=== PATIENT | female | born 1940 | race Caucasian/White ===

== ENCOUNTER 2018-12-31 10:40 | Emergency (ER) | payer MEDICARE ==
[~2018-12-31] VITALS: Ht 154.9 cm; Wt 50.5 kg
[~2018-12-31 10:40] MED LIST: ASPI-1265 PO; CIPR-260 PO; GLIM1TAB3 PO; LANTUS SQ; LISI-222 PO; METF-950 PO; PANT40TA39 PO; PRAV20TA60 PO
[2018-12-31 12:03] LABS: BASOPHILS % (AUTO) 0.8 % (0-1); EOSINOPHILS # (AUTO) 0.1 X10'3 (0-0.9); EOSINOPHILS % (AUTO) 1.5 % (0-6); HEMATOCRIT 31.5 % (35.0-45.0); HEMOGLOBIN 10.7 g/dl (12.0-16.0); LYMPHOCYTES # (AUTO) 1.1 X10'3 (1.1-4.8); LYMPHOCYTES % (AUTO) 26.7 % (21-51); MEAN CORPUSCULAR HEMOGLOBIN 31.4 PG (27.0-31.0); MEAN CORPUSCULAR HGB CONC 34.1 g/dL (33.0-36.5); MEAN CORPUSCULAR VOLUME 92.1 FL (78-98); MEAN PLATELET VOLUME 9.4 FL (7.4-10.4); MONOCYTES # (AUTO) 0.2 X10'3 (0-0.9); MONOCYTES % (AUTO) 4.8 % (2-12); NEUTROPHILS # (AUTO) 2.8 X10'3 (1.8-7.7); NEUTROPHILS % (AUTO) 66.2 % (42-75); PLATELET COUNT 203 X10'3 (140-440); RED BLOOD COUNT 3.42 X10'6 (4.20-5.60); RED CELL DISTRIBUTION WIDTH 13.6 % (11.5-14.5); WHITE BLOOD COUNT 4.3 X10'3 (4.5-11.0)
[2018-12-31 12:15] LABS: ALANINE AMINOTRANSFERASE 22 U/L (12-78); ALBUMIN 3.7 G/DL (3.4-5.0); ALBUMIN/GLOBULIN RATIO 1.2 (1.1-1.5); ALKALINE PHOSPHATASE 48 IU/L (46-116); ANION GAP 7 (8-16); ASPARTATE AMINO TRANSFERASE 17 U/L (10-37); BILIRUBIN,TOTAL 0.2 MG/DL (0.1-1.0); BLOOD UREA NITROGEN 20 MG/DL (7-18); BUN/CREATININE RATIO 19.4 (6.6-38.0); CALCIUM 9.4 MG/DL (8.5-10.1); CHLORIDE 109 MMOL/L (99-107); CREATININE 1.03 MG/DL (0.40-0.90); GLUCOSE 99 MG/DL (70-104); MAGNESIUM 1.8 MG/DL (1.5-2.4); POTASSIUM 4.2 MMOL/L (3.5-5.1); SODIUM 143 MMOL/L (135-145); TOTAL CARBON DIOXIDE 27.5 MMOL/L (24-32); TOTAL PROTEIN 6.8 G/DL (6.4-8.2); eGFR 52 ML/MIN
--- NOTE | 2018-12-31 12:50 | NUR ---
ASSUMED CARE OF PT FROM APOORVA PFEIFFER, PT IS RESTING QUIETLY ON GURNEY, RESP EVEN AND UNLABORED, FAMILY AT BEDSIDE, WAITING FOR LAB RESULTS
[2018-12-31 12:51] LABS: CLARITY,URINE CLOUDY (Clear); COLOR,URINE YELLOW (Yellow); GLUCOSE, URINE NEGATIVE (Neg); KETONES,URINE NEGATIVE (Neg); LEUKOCYTE ESTERASE ,URINE SMALL (Neg); NITRITES, URINE NEGATIVE (Neg); OCCULT BLOOD,URINE NEGATIVE (Neg); PROTEIN,URINE NEGATIVE (Neg); UA COLLECTION TYPE STRAIGHT CATH; UROBILINOGEN,URINE 0.2 E.U/dL (0.2-1.0)
[2018-12-31 13:01] LABS: BACTERIA,URINE FEW /HPF (Neg); RBC,URINE 0-2 /HPF (0-2); SQUAMOUS EPITHELIAL CELL,UR MANY /LPF (FEW); WBC CLUMPS,URINE MODERATE /HPF (NEGATIVE); WBC,URINE 20-30 /HPF (0-4)
[2018-12-31] MEDS ORDERED: CEPH500C5 PO (13:13)
[2018-12-31 13:24] VITALS: BP 142/66
== END 2018-12-31 13:22 | disposition home or self-care (01) ==
LOC: ER 10:41
DX: N39.0 Urinary tract infection, site not specified (principal); M54.2 Cervicalgia; R06.02 Shortness of breath; I25.10 Atherosclerotic heart disease of native coronary artery without angina pectoris; E78.00 Pure hypercholesterolemia, unspecified; I10 Essential (primary) hypertension; E11.9 Type 2 diabetes mellitus without complications; Z90.49 Acquired absence of other specified parts of digestive tract; Z90.710 Acquired absence of both cervix and uterus; Z60.2 Problems related to living alone; Z79.82 Long term (current) use of aspirin; Z79.4 Long term (current) use of insulin; Z79.84 Long term (current) use of oral hypoglycemic drugs; Z79.899 Other long term (current) drug therapy
CPT/HCPCS: 36415; 71045; 80053; 81001; 83735; 83880; 84484; 85025; 87088; 93005; 99284; P9612

== ENCOUNTER 2019-01-06 09:55 | Day surgery (SDC) | payer MEDICARE ==
[2019-01-05 08:57] LABS: EOSINOPHILS # (AUTO) 0.1 X10'3 (0-0.9); EOSINOPHILS % (AUTO) 1.3 % (0-6); HEMATOCRIT 33.4 % (35.0-45.0); HEMOGLOBIN 11.3 g/dl (12.0-16.0); LYMPHOCYTES # (AUTO) 1.2 X10'3 (1.1-4.8); LYMPHOCYTES % (AUTO) 29.7 % (21-51); MEAN CORPUSCULAR HEMOGLOBIN 31.2 PG (27.0-31.0); MEAN CORPUSCULAR HGB CONC 33.8 g/dL (33.0-36.5); MEAN CORPUSCULAR VOLUME 92.2 FL (78-98); MEAN PLATELET VOLUME 9.4 FL (7.4-10.4); MONOCYTES # (AUTO) 0.2 X10'3 (0-0.9); MONOCYTES % (AUTO) 5.2 % (2-12); NEUTROPHILS # (AUTO) 2.5 X10'3 (1.8-7.7); NEUTROPHILS % (AUTO) 62.8 % (42-75); PLATELET COUNT 224 X10'3 (140-440); RED BLOOD COUNT 3.62 X10'6 (4.20-5.60); RED CELL DISTRIBUTION WIDTH 14.1 % (11.5-14.5); WHITE BLOOD COUNT 4.1 X10'3 (4.5-11.0)
[2019-01-05 09:00] LABS: ANION GAP 9 (8-16); BLOOD UREA NITROGEN 20 MG/DL (7-18); CALCIUM 9.3 MG/DL (8.5-10.1); CHLORIDE 106 MMOL/L (99-107); GLUCOSE 107 MG/DL (70-104); POTASSIUM 4.1 MMOL/L (3.5-5.1); SODIUM 142 MMOL/L (135-145); TOTAL CARBON DIOXIDE 27.3 MMOL/L (24-32); eGFR 54 ML/MIN
[2019-01-05 09:19] LABS: PARTIAL THROMBOPLASTIN TIME 28 SECONDS (22-32)
[2019-01-06] VITALS (11 sets, daily range): BP systolic 121–192; BP diastolic 49–91
[~2019-01-06] VITALS: Ht 154.9 cm; Wt 50.0 kg
[~2019-01-06 09:55] MED LIST changes: +CEPH500C5 PO
[2019-01-06] MEDS ORDERED: LIDOcaine/PRILOcaine 5gm cream TP ONE (10:10)
[2019-01-06] MEDS ORDERED: diphenhydrAMINE 25mg capsule PO PRN (10:20)
[2019-01-06] MEDS ORDERED: normal saline 1,000 ML IV SCH (10:20)
[2019-01-06] MEDS ORDERED: LORazepam 0.5 MG tablet PO PRN (10:20)
[2019-01-06] MEDS ORDERED: CEPH-572 PO (11:53)
[2019-01-06] MEDS ORDERED: ALPR0.5T8 PO (11:53)
[2019-01-06] MEDS ORDERED: QUET25TA PO (11:53)
[2019-01-06] MEDS ORDERED: ATOR10TA87 PO (11:53)
[2019-01-06] MEDS ORDERED: SERT25TA5 PO (11:53)
[2019-01-06] MEDS ORDERED: nitroGLYCERIN-Tridil 50MG/D5W 250 ML IV ONE (12:44)
[2019-01-06] MEDS ORDERED: fentaNYL/PF 50MCG/1 ML 2ML syringe ONE (12:44)
[2019-01-06] MEDS ORDERED: LIDOcaine 1% (10mg/ml)w/preservative injection 20ml MDV ONE (12:44)
[2019-01-06] MEDS ORDERED: midazolam 2 mg/2 ml injection ONE (12:44)
[2019-01-06] MEDS ORDERED: iohexol 350 MG/ML 50ML vial IV ONE (12:45)
[2019-01-06] MEDS ORDERED: heparin 1,000unit/ml 10ml vial 10 ML ONE (12:45)
[2019-01-06] MEDS ORDERED: iohexol 350MG/ML 100ml bottle IV ONE ×3 (12:45→14:18)
[2019-01-06] MEDS ORDERED: verapamil 2.5 mg/ml inj IV ONE (13:09)
[2019-01-06] MEDS ORDERED: heparin 25,000 UNIT/250ml bag 250 ML IV ONE (14:07)
[2019-01-06] MEDS ORDERED: clopidogrel 300mg tablet ONE (14:29)
[2019-01-06] MEDS ORDERED: aspirin 81mg tab.chew PO SCH (15:30)
[2019-01-06] MEDS ORDERED: normal saline 1000ml 1,000 ML IV SCH (15:35)
[2019-01-07] MEDS ORDERED: clopidogrel 75mg tablet PO SCH (08:00)
== END 2019-01-06 20:05 | disposition home or self-care (01) ==
LOC: SSTAY O 09:55
PROVIDERS: ATTEND Internal Medicine Cardiovascular Disease
DX: I25.10 Atherosclerotic heart disease of native coronary artery without angina pectoris (principal); I10 Essential (primary) hypertension; E78.5 Hyperlipidemia, unspecified; E11.9 Type 2 diabetes mellitus without complications; F17.210 Nicotine dependence, cigarettes, uncomplicated; Z79.4 Long term (current) use of insulin; Z79.899 Other long term (current) drug therapy; Z85.51 Personal history of malignant neoplasm of bladder; Z90.710 Acquired absence of both cervix and uterus; Z98.890 Other specified postprocedural states; Z82.49 Family history of ischemic heart disease and other diseases of the circulatory system; Z82.3 Family history of stroke
CPT/HCPCS: 36415; 80048; 82948; 85025; 85347; 85610; 85730; 93005; 93458; 99152; 99153; C1725; C1769; C1874; C1894; C9600; J1644; J2001; J2250; J3010; J7030; J7040; Q0163; Q9967; A4620; J3490

== ENCOUNTER 2019-04-16 14:00 | Inpatient (IN) | payer MEDICARE ==
[2019-04-16] VITALS (10 sets, daily range): BP systolic 112–162; BP diastolic 43–69
[~2019-04-16] VITALS: Ht 154.9 cm; Wt 52.0 kg
[~2019-04-16 14:00] MED LIST changes: +ALPR0.5T8 PO; +ATOR10TA87 PO; +CEPH-572 PO; -CEPH500C5 PO; -CIPR-260 PO; -GLIM1TAB3 PO; -PANT40TA39 PO; -PRAV20TA60 PO; +QUET25TA PO; +SERT25TA5 PO
--- NOTE | 2019-04-16 15:16 | NUR ---
PT BEGAN MACROBID YESTERDAY FOR A UTI
[2019-04-16 15:24] LABS: BASOPHILS # (AUTO) 0.1 X10'3 (0-0.2); LYMPHOCYTES # (AUTO) 0.8 X10'3 (1.1-4.8); LYMPHOCYTES % (AUTO) 15.2 % (21-51); MEAN CORPUSCULAR HEMOGLOBIN 20.7 PG (27.0-31.0); MEAN CORPUSCULAR HGB CONC 29.9 g/dL (33.0-36.5); MONOCYTES # (AUTO) 0.2 X10'3 (0-0.9); MONOCYTES % (AUTO) 4.4 % (2-12); NEUTROPHILS % (AUTO) 78.4 % (42-75); PLATELET COUNT 198 X10'3 (140-440); RED BLOOD COUNT 2.42 X10'6 (4.20-5.60); RED CELL DISTRIBUTION WIDTH 19.7 % (11.5-14.5); WHITE BLOOD COUNT 5.1 X10'3 (4.5-11.0)
[2019-04-16 15:28] LABS: HEMATOCRIT 16.7 % (35.0-45.0)
[2019-04-16 15:44] LABS: ALANINE AMINOTRANSFERASE 30 U/L (12-78); ALBUMIN 3.5 G/DL (3.4-5.0); ALBUMIN/GLOBULIN RATIO 1.1 (1.1-1.5); ALKALINE PHOSPHATASE 64 IU/L (46-116); ANION GAP 9 (8-16); ASPARTATE AMINO TRANSFERASE 24 U/L (10-37); BILIRUBIN,TOTAL 0.2 MG/DL (0.1-1.0); BLOOD UREA NITROGEN 24 MG/DL (7-18); CALCIUM 8.9 MG/DL (8.5-10.1); CHLORIDE 106 MMOL/L (99-107); CREATININE 0.96 MG/DL (0.40-0.90); GLUCOSE 162 MG/DL (70-104); POTASSIUM 4.2 MMOL/L (3.5-5.1); SODIUM 139 MMOL/L (135-145); TOTAL CARBON DIOXIDE 24.3 MMOL/L (24-32); TOTAL PROTEIN 6.6 G/DL (6.4-8.2); eGFR 56 ML/MIN
[2019-04-16] MEDS ORDERED: normal saline 1000ml 1,000 ML IV ONE (15:50)
[2019-04-16] MEDS ORDERED: pantoprazole 40 MG vial IV ONE (15:50)
[2019-04-16] MEDS ORDERED: QUET50TA22 PO (16:04)
[2019-04-16] MEDS ORDERED: LISI40TA4 PO (16:04)
[2019-04-16] MEDS ORDERED: ALPR1TAB7 PO (16:04)
[2019-04-16] MEDS ORDERED: PRAM0.258 PO (16:08)
[2019-04-16] MEDS ORDERED: MULT-955 PO (16:08)
[2019-04-16] MEDS ORDERED: CLOP75TA35 PO (16:09)
[2019-04-16] MEDS ORDERED: ondansetron/PF 4mg/2ml inj IV PRN (16:10)
[2019-04-16] MEDS ORDERED: acetaminophen 325mg tablet PO PRN (16:10)
[2019-04-16] MEDS ORDERED: mag hydrox/Alum hydrox/simeth 30ml oral suspension PO PRN (16:10)
[2019-04-16] MEDS ORDERED: magnesium hydroxide 30ml (MOM) UD suspension PO PRN (16:10)
[2019-04-16] MEDS ORDERED: PEG 3350/Na sulf,bicarb,Cl/KCl oral sol 4 liter bottle PO ONE (16:20)
[2019-04-16 16:23] LABS: ANISOCYTOSIS 2+; ELLIPTOCYTES FEW; HYPOCHROMASIA 3+; MICROCYTOSIS 2+; PLATELET ESTIMATE NORMAL; POLYCHROMASIA 1+; TEAR DROP CELLS 1+
--- NOTE | 2019-04-16 18:00 | NUR ---
Patient in room PCU 3016. I have received report from Nilsa PFEIFFER [facility] and had the opportunity to ask questions and assume patient care.
[2019-04-16] MEDS: normal saline 1000ml 1,000 ML IV SCH (18:10)
--- NOTE | 2019-04-16 18:39 | NUR ---
PT PULLED OUT HER IV, IV RESTARTED. PT CONFUSED, TRIES TO GET UP WITHOUT HELP. NURSING AUTO TECHNICIAN MECHANIC WAS NOTIFIED THAT PT WOULD NEED A SITTER
--- NOTE | 2019-04-16 19:45 | NUR ---
blood ended at 1944, first unit started in ER
[2019-04-16] MEDS: insulin glargine (Lantus) pen - multi-dose SQ SCH (21:00)
[2019-04-16] MEDS: ALPRAZolam 0.5mg tablet PO SCH (21:14)
[2019-04-16] MEDS: pramipexole 0.25mg tablet PO SCH (21:17)
[2019-04-16 21:39] LABS: MEAN CORPUSCULAR HEMOGLOBIN 22.6 PG (27.0-31.0); MEAN PLATELET VOLUME 8.5 FL (7.4-10.4); PLATELET COUNT 157 X10'3 (140-440); RED BLOOD COUNT 2.54 X10'6 (4.20-5.60); WHITE BLOOD COUNT 4.9 X10'3 (4.5-11.0)
[2019-04-16 21:41] LABS: HEMATOCRIT 18.5 % (35.0-45.0); HEMOGLOBIN 5.7 g/dl (12.0-16.0)
--- NOTE | 2019-04-16 22:46 | NUR ---
TRANSFUSION VS ABNORMAL Patients vital signs one hour post transfusion were 111/44 BP, HR 59, respirations 14, temp 96.5 axillary-discussed change of vital sign trend with discharge planner Aaron, discussed patient getting xanax and mirapex one hour ago, no other signs or symptoms of transfusion reaction. Per conversation with Change RN, determined patient is not having transfusion reaction, but affected by medication administration, and do not need to contact MD at this time
[2019-04-17] VITALS (31 sets, daily range): BP systolic 113–190; BP diastolic 36–83
[2019-04-17] MEDS ORDERED: furosemide 20 MG/2 ML vial IV PRN (03:15)
[2019-04-17] MEDS ORDERED: hydrALAZINE 20mg/ml inj. IV PRN (03:15)
[2019-04-17] MEDS ORDERED: furosemide 20 MG/2 ML vial IV ONE (03:15)
--- NOTE | 2019-04-17 06:21 | NUR ---
Patient in room PCU 3016. I have received report from KENTRELL Kamara and had the opportunity to ask questions and assume patient care.
[2019-04-17 06:27] LABS: ALBUMIN 3.9 G/DL (3.4-5.0); ANION GAP 14 (8-16); BLOOD UREA NITROGEN 18 MG/DL (7-18); BUN/CREATININE RATIO 19.6 (6.6-38.0); CHLORIDE 107 MMOL/L (99-107); CREATININE 0.92 MG/DL (0.40-0.90); GLUCOSE 122 MG/DL (70-104); POTASSIUM 3.8 MMOL/L (3.5-5.1); SODIUM 142 MMOL/L (135-145); eGFR 59 ML/MIN
--- NOTE | 2019-04-17 06:36 | NUR ---
Problems reprioritized. Patient report given, questions answered & plan of care reviewed with Efrain PFEIFFER.
--- NOTE | 2019-04-17 06:42 | NUR ---
PAGER ID: [phone] MESSAGE: [id number] Sara Medeiros: CO2 41.3 KENTRELL Zuniga [id number] Addendum: 04/17/19 at 0642 by Efrain العلي RN wrong patient
[2019-04-17 06:54] LABS: BASOPHILS # (AUTO) 0.1 X10'3 (0-0.2); EOSINOPHILS # (AUTO) 0.1 X10'3 (0-0.9); EOSINOPHILS % (AUTO) 1.4 % (0-6); HEMATOCRIT 33.6 % (35.0-45.0); HEMOGLOBIN 10.7 g/dl (12.0-16.0); LYMPHOCYTES # (AUTO) 0.9 X10'3 (1.1-4.8); LYMPHOCYTES % (AUTO) 16.6 % (21-51); MEAN CORPUSCULAR HEMOGLOBIN 24.8 PG (27.0-31.0); MEAN CORPUSCULAR VOLUME 77.4 FL (78-98); MEAN PLATELET VOLUME 9.3 FL (7.4-10.4); MONOCYTES # (AUTO) 0.3 X10'3 (0-0.9); MONOCYTES % (AUTO) 5.2 % (2-12); NEUTROPHILS # (AUTO) 4.3 X10'3 (1.8-7.7); NEUTROPHILS % (AUTO) 75.8 % (42-75); PLATELET COUNT 184 X10'3 (140-440); RED BLOOD COUNT 4.34 X10'6 (4.20-5.60); RED CELL DISTRIBUTION WIDTH 20.5 % (11.5-14.5); WHITE BLOOD COUNT 5.6 X10'3 (4.5-11.0)
[2019-04-17] MEDS: normal saline 1000ml 1,000 ML IV SCH (06:57)
[2019-04-17 07:33] LABS: ANISOCYTOSIS 3+; LARGE PLATELETS FEW; MICROCYTOSIS 1+; PLATELET ESTIMATE NORMAL; POIKILOCYTOSIS FEW; POLYCHROMASIA FEW
[2019-04-17] MEDS ORDERED: LIDOcaine Viscous 15ml cup ONE (08:35)
[2019-04-17] MEDS ORDERED: fentaNYL/PF 50MCG/1 ML 2ML syringe ONE (08:35)
[2019-04-17] MEDS ORDERED: MIDAZolam 5mg/5ml vial ONE (08:35)
--- NOTE | 2019-04-17 09:27 | NUR ---
PAGER ID: [phone] MESSAGE: [id number] GENEVIEVE HAD A 3.7 SEC PAUSE. VS MANDEEP OTHER THAN THAT LEOPOLDO MONET
--- NOTE | 2019-04-17 09:33 | NUR ---
PAGER ID: [phone] MESSAGE: Rowdy [id number] GENEVIEVE IN GI LAB FOR COLONOSCOPY . THEY ARE AWARE OF PAUSE
[2019-04-17] MEDS: sertraline 25mg tablet PO SCH (10:59)
[2019-04-17] MEDS: QUEtiapine 25mg tablet PO SCH (10:59)
[2019-04-17] MEDS: clopidogrel 75mg tablet PO SCH (10:59)
[2019-04-17] MEDS: multivitamins, therapeutics tablet PO SCH (10:59)
[2019-04-17] MEDS: atorvastatin 10mg tablet PO SCH (10:59)
[2019-04-17] MEDS: lisinopril 20mg tablet PO SCH (10:59)
[2019-04-17 11:09] LABS: HEMATOCRIT 28.6 % (35.0-45.0); HEMOGLOBIN 9.5 g/dl (12.0-16.0); MEAN CORPUSCULAR HEMOGLOBIN 25.1 PG (27.0-31.0); MEAN CORPUSCULAR HGB CONC 33.1 g/dL (33.0-36.5); MEAN CORPUSCULAR VOLUME 75.9 FL (78-98); MEAN PLATELET VOLUME 8.8 FL (7.4-10.4); PLATELET COUNT 164 X10'3 (140-440); RED BLOOD COUNT 3.77 X10'6 (4.20-5.60); WHITE BLOOD COUNT 4.9 X10'3 (4.5-11.0)
[2019-04-17] MEDS: pramipexole 0.25mg tablet PO SCH ×2 (11:53→20:27)
[2019-04-17 17:08] LABS: HEMATOCRIT 27.6 % (35.0-45.0); HEMOGLOBIN 9.1 g/dl (12.0-16.0); MEAN CORPUSCULAR HEMOGLOBIN 24.7 PG (27.0-31.0); MEAN CORPUSCULAR HGB CONC 32.9 g/dL (33.0-36.5); MEAN CORPUSCULAR VOLUME 75.1 FL (78-98); MEAN PLATELET VOLUME 8.7 FL (7.4-10.4); PLATELET COUNT 170 X10'3 (140-440); RED BLOOD COUNT 3.68 X10'6 (4.20-5.60); RED CELL DISTRIBUTION WIDTH 21.3 % (11.5-14.5)
--- NOTE | 2019-04-17 18:18 | NUR ---
Problems reprioritized. Patient report given, questions answered & plan of care reviewed with KENTRELL Castro.
--- NOTE | 2019-04-17 18:26 | NUR ---
Patient in room PCU 3016. I have received report from Efrain PFEIFFER and had the opportunity to ask questions and assume patient care.
[2019-04-17] MEDS: ALPRAZolam 0.5mg tablet PO SCH (20:27)
[2019-04-17] MEDS: insulin glargine (Lantus) pen - multi-dose SQ SCH (21:35)
[2019-04-17 22:12] LABS: HEMATOCRIT 25.7 % (35.0-45.0); HEMOGLOBIN 8.3 g/dl (12.0-16.0); MEAN CORPUSCULAR HEMOGLOBIN 24.7 PG (27.0-31.0); MEAN CORPUSCULAR HGB CONC 32.4 g/dL (33.0-36.5); MEAN PLATELET VOLUME 8.5 FL (7.4-10.4); PLATELET COUNT 147 X10'3 (140-440); RED BLOOD COUNT 3.38 X10'6 (4.20-5.60); RED CELL DISTRIBUTION WIDTH 21.5 % (11.5-14.5); WHITE BLOOD COUNT 3.5 X10'3 (4.5-11.0)
[2019-04-17] MEDS ORDERED: dextrose ORAL solution 15 GM/59 ML bottle PO PRN ×2 (23:25)
[2019-04-17] MEDS ORDERED: dextrose 50%-water 50ml dispensing syringe IV PRN ×2 (23:25)
[2019-04-17] MEDS ORDERED: MESSAGE TO PHARMACY PO ONE (23:25)
[2019-04-17] MEDS ORDERED: insulin Lispro (HumaLOG) vial - multi-dose SQ SCH (23:25)
[2019-04-17] MEDS ORDERED: glucagon, human recombinant 1mg kit SUBCUT PRN (23:25)
[2019-04-18 02:00] VITALS: BP 135/57
[2019-04-18 04:57] LABS: BASOPHILS % (AUTO) 1.1 % (0-1); EOSINOPHILS # (AUTO) 0.1 X10'3 (0-0.9); EOSINOPHILS % (AUTO) 3.1 % (0-6); HEMATOCRIT 28.7 % (35.0-45.0); HEMOGLOBIN 9.2 g/dl (12.0-16.0); LYMPHOCYTES # (AUTO) 0.8 X10'3 (1.1-4.8); LYMPHOCYTES % (AUTO) 21.6 % (21-51); MEAN CORPUSCULAR HEMOGLOBIN 24.5 PG (27.0-31.0); MEAN CORPUSCULAR VOLUME 76.6 FL (78-98); MEAN PLATELET VOLUME 8.8 FL (7.4-10.4); MONOCYTES # (AUTO) 0.2 X10'3 (0-0.9); MONOCYTES % (AUTO) 6.3 % (2-12); NEUTROPHILS # (AUTO) 2.4 X10'3 (1.8-7.7); NEUTROPHILS % (AUTO) 67.9 % (42-75); PLATELET COUNT 163 X10'3 (140-440); RED BLOOD COUNT 3.74 X10'6 (4.20-5.60); RED CELL DISTRIBUTION WIDTH 21.6 % (11.5-14.5); WHITE BLOOD COUNT 3.5 X10'3 (4.5-11.0)
[2019-04-18 05:04] LABS: ALBUMIN 3.2 G/DL (3.4-5.0); ANION GAP 8 (8-16); BLOOD UREA NITROGEN 15 MG/DL (7-18); BUN/CREATININE RATIO 17.4 (6.6-38.0); CALCIUM 8.9 MG/DL (8.5-10.1); CHLORIDE 107 MMOL/L (99-107); CREATININE 0.86 MG/DL (0.40-0.90); GLUCOSE 89 MG/DL (70-104); POTASSIUM 3.1 MMOL/L (3.5-5.1); SODIUM 141 MMOL/L (135-145); TOTAL CARBON DIOXIDE 25.7 MMOL/L (24-32); eGFR 64 ML/MIN
[2019-04-18 06:00] VITALS: BP 106/55
--- NOTE | 2019-04-18 06:12 | NUR ---
Problems reprioritized. Patient report given, questions answered & plan of care reviewed with Efrain PFEIFFER.
--- NOTE | 2019-04-18 06:17 | NUR ---
Patient in room PCU 3016. I have received report from KENTRELL Castro and had the opportunity to ask questions and assume patient care.
[2019-04-18 07:06] LABS: ANISOCYTOSIS 3+; MICROCYTOSIS 1+; PLATELET ESTIMATE NORMAL; POIKILOCYTOSIS FEW; POLYCHROMASIA 1+
[2019-04-18 07:07] LABS: HYPOCHROMASIA 1+
--- NOTE | 2019-04-18 07:53 | NUR ---
PAGER ID: [phone] MESSAGE: [id number] Sushila Trae blood sugar 47 dextrose given per protocol. KENTRELL Zuniga Ext [id number]
[2019-04-18] MEDS: pramipexole 0.25mg tablet PO SCH (07:59)
[2019-04-18] MEDS: multivitamins, therapeutics tablet PO SCH (07:59)
[2019-04-18] MEDS: sertraline 25mg tablet PO SCH (07:59)
[2019-04-18] MEDS: atorvastatin 10mg tablet PO SCH (07:59)
[2019-04-18] MEDS: QUEtiapine 25mg tablet PO SCH (07:59)
[2019-04-18] MEDS: clopidogrel 75mg tablet PO SCH (07:59)
[2019-04-18] MEDS: lisinopril 20mg tablet PO SCH (08:00)
--- NOTE | 2019-04-18 08:58 | NUR ---
PAGER ID: [phone] MESSAGE: [id number] Sushila Larkin may I put in K replacement orders? KENTRELL Zuniga Ext [id number]
[2019-04-18] MEDS ORDERED: potassium CL 10mEq/100ml bag 100 ML IV PRN (09:00)
[2019-04-18] MEDS ORDERED: potassium Cl 20 mEq SR tablet PO PRN ×2 (09:00)
[2019-04-18] MEDS ORDERED: magnesium 4gm in 100ml NS 100 ML IV PRN (09:00)
[2019-04-18] MEDS ORDERED: magnesium Cl slow-release 64mg tablet PO PRN (09:00)
[2019-04-18] MEDS ORDERED: magnesium 2GM in 50ml NS 50 ML IV PRN (09:00)
--- NOTE | 2019-04-18 10:14 | NUR ---
PAGER ID: [phone] MESSAGE: [phone] [id number] Sushila Larkin can we get a sitter while we are waiting for her to leave. I am mostly worried of her transfer from sitting to standing (just to be safe). She is also prone to wandering around. KENTRELL Zuniga Ext [id number]
[2019-04-18 11:00] VITALS: BP 153/62
[2019-04-18 11:10] LABS: HEMATOCRIT 29.3 % (35.0-45.0); HEMOGLOBIN 9.6 g/dl (12.0-16.0); MEAN CORPUSCULAR HEMOGLOBIN 24.9 PG (27.0-31.0); MEAN CORPUSCULAR HGB CONC 32.7 g/dL (33.0-36.5); MEAN CORPUSCULAR VOLUME 76.2 FL (78-98); MEAN PLATELET VOLUME 8.8 FL (7.4-10.4); PLATELET COUNT 173 X10'3 (140-440); RED BLOOD COUNT 3.84 X10'6 (4.20-5.60); RED CELL DISTRIBUTION WIDTH 21.7 % (11.5-14.5); WHITE BLOOD COUNT 4.9 X10'3 (4.5-11.0)
--- NOTE | 2019-04-18 12:30 | NUR ---
DM Consult: A1C 7.3. Pt hx dementia and not appropriate for DM ed at this time. Addendum: 04/18/19 at [address] Amended: Links added.
--- NOTE | 2019-04-18 13:55 | NUR ---
Discharged. PIVs taken out and tele returned. Family educated on GIB and follow-up appointment and stopping aspirin. Stable for DC per MD. Daughter signed all papers.
[2019-04-18] MEDS ORDERED: insulin glargine (Lantus) pen - multi-dose SQ SCH (21:00)
[2019-04-25 11:02] LABS: OCCULT BLOOD STOOL POSITIVE (Neg)
== END 2019-04-18 13:35 | disposition home health service (06) | DRG 378 ==
LOC: ER 14:01 → ED HOLD 16:06 → PCU 3S 19:07
PROVIDERS: ADMIT Family Medicine; ATTEND Hospitalist
PROC: 30233N1 Transfusion of Nonautologous Red Blood Cells into Peripheral Vein, Percutaneous Approach (ICD-10-PCS; 2019-04-16)
PROC: 0DB68ZX Excision of Stomach, Via Natural or Artificial Opening Endoscopic, Diagnostic (ICD-10-PCS; principal; 2019-04-17)
PROC: 0DJD8ZZ Inspection of Lower Intestinal Tract, Via Natural or Artificial Opening Endoscopic (ICD-10-PCS; 2019-04-17)
PROC: 30233N1 Transfusion of Nonautologous Red Blood Cells into Peripheral Vein, Percutaneous Approach (ICD-10-PCS; 2019-04-17)
DX: K92.2 Gastrointestinal hemorrhage, unspecified (principal); D62 Acute posthemorrhagic anemia; E11.9 Type 2 diabetes mellitus without complications; E78.00 Pure hypercholesterolemia, unspecified; E78.5 Hyperlipidemia, unspecified; F03.90 Unspecified dementia, unspecified severity, without behavioral disturbance, psychotic disturbance, mood disturbance, and anxiety; K21.9 Gastro-esophageal reflux disease without esophagitis; F41.9 Anxiety disorder, unspecified; I10 Essential (primary) hypertension; I25.10 Atherosclerotic heart disease of native coronary artery without angina pectoris; Z90.49 Acquired absence of other specified parts of digestive tract; Z90.710 Acquired absence of both cervix and uterus; Z95.5 Presence of coronary angioplasty implant and graft
CPT/HCPCS: 36415; 36430; 43239; 45378; 71045; 80048; 80053; 82272; 82948; 83036; 84484; 85025; 85027; 86885; 86900; 86901; 86920; 87081; 93005; 96374; 99152; 99153; 99285; A4620; C9113; G0378; J1815; J1940; J2250; J3010; J7030; J7040; P9016

== ENCOUNTER 2019-05-17 08:35 | Emergency (ER) | payer MEDICARE ==
[~2019-05-17] VITALS: Ht 160 cm; Wt 54.0 kg
[~2019-05-17 08:35] MED LIST changes: -ALPR0.5T8 PO; +ALPR1TAB7 PO; -ASPI-1265 PO; -CEPH-572 PO; +CLOP75TA35 PO; -LISI-222 PO; +LISI40TA4 PO; +MULT-955 PO; +PRAM0.258 PO; -QUET25TA PO; +QUET50TA22 PO
[2019-05-17 08:39] VITALS: BP 126/48
[2019-05-17] MEDS ORDERED: ondansetron/PF 4mg/2ml inj IV ONE (08:50)
[2019-05-17] MEDS ORDERED: normal saline 1000ML IV soln IVB ONE (08:50)
--- NOTE | 2019-05-17 09:25 | NUR ---
PTS DAUGHTER AT BEDSIDE, STATES HER MOM WILL NOT TOLERATE AN IV WITHOUT BEING TIED DOWN. PA ADVISED. WILL HOLD OFF ON IVF FOR NOW.
[2019-05-17 09:28] LABS: BASOPHILS % (AUTO) 0.3 % (0-1); EOSINOPHILS % (AUTO) 0.3 % (0-6); HEMATOCRIT 29.5 % (35.0-45.0); HEMOGLOBIN 9.7 g/dl (12.0-16.0); LYMPHOCYTES # (AUTO) 0.5 X10'3 (1.1-4.8); MEAN CORPUSCULAR VOLUME 78.9 FL (78-98); MEAN PLATELET VOLUME 9.1 FL (7.4-10.4); MONOCYTES # (AUTO) 0.3 X10'3 (0-0.9); MONOCYTES % (AUTO) 3.5 % (2-12); NEUTROPHILS # (AUTO) 7.7 X10'3 (1.8-7.7); NEUTROPHILS % (AUTO) 89.9 % (42-75); PLATELET COUNT 148 X10'3 (140-440); RED BLOOD COUNT 3.74 X10'6 (4.20-5.60); RED CELL DISTRIBUTION WIDTH 25.3 % (11.5-14.5); WHITE BLOOD COUNT 8.6 X10'3 (4.5-11.0)
[2019-05-17 09:47] LABS: ALANINE AMINOTRANSFERASE 25 U/L (12-78); ALBUMIN 3.6 G/DL (3.4-5.0); ALBUMIN/GLOBULIN RATIO 1.2 (1.1-1.5); ALKALINE PHOSPHATASE 66 IU/L (46-116); ANION GAP 11 (8-16); ASPARTATE AMINO TRANSFERASE 20 U/L (10-37); BILIRUBIN,TOTAL 0.3 MG/DL (0.1-1.0); BLOOD UREA NITROGEN 23 MG/DL (7-18); BUN/CREATININE RATIO 23.5 (6.6-38.0); CHLORIDE 106 MMOL/L (99-107); CREATININE 0.98 MG/DL (0.40-0.90); GLUCOSE 224 MG/DL (70-104); POTASSIUM 4.3 MMOL/L (3.5-5.1); SODIUM 140 MMOL/L (135-145); TOTAL CARBON DIOXIDE 22.7 MMOL/L (24-32); TOTAL PROTEIN 6.6 G/DL (6.4-8.2); eGFR 55 ML/MIN
[2019-05-17] MEDS ORDERED: ONDA4TAB6 PO (09:51)
[2019-05-17 10:40] LABS: CLARITY,URINE CLOUDY (Clear); COLOR,URINE YELLOW (Yellow); GLUCOSE, URINE 500 mg/dl (Neg); KETONES,URINE TRACE mg/dl (Neg); LEUKOCYTE ESTERASE ,URINE MODERATE (Neg); NITRITES, URINE NEGATIVE (Neg); OCCULT BLOOD,URINE SMALL (Neg); PROTEIN,URINE NEGATIVE (Neg); UA COLLECTION TYPE STRAIGHT CATH; UROBILINOGEN,URINE 0.2 E.U/dL (0.2-1.0)
[2019-05-17] MEDS ORDERED: SULF1TAB49 PO (10:56)
[2019-05-17 11:23] LABS: MUCUS STRANDS FEW /LPF (Neg)
[2019-05-17 11:24] LABS: HYALINE CASTS 0-3 /LPF (NEGATIVE); SQUAMOUS EPITHELIAL CELL,UR FEW /LPF (FEW)
[2019-05-17 11:25] LABS: BACTERIA,URINE 1+ /HPF (Neg); WBC CLUMPS,URINE MANY /HPF (NEGATIVE); WBC,URINE 50-100 /HPF (0-4)
[2019-05-17 11:27] LABS: TRANSITIONAL EPI CELLS,URINE MODERATE /HPF
[2019-05-17 11:43] LABS: ANISOCYTOSIS 3+; MICROCYTOSIS 1+; PLATELET ESTIMATE NORMAL
[2019-05-17 11:47] LABS: BURR CELLS FEW; ELLIPTOCYTES FEW; TEAR DROP CELLS 1+
== END 2019-05-17 11:06 | disposition home or self-care (01) ==
LOC: ER 08:36
DX: N39.0 Urinary tract infection, site not specified (principal); R11.2 Nausea with vomiting, unspecified; R53.1 Weakness; F03.90 Unspecified dementia, unspecified severity, without behavioral disturbance, psychotic disturbance, mood disturbance, and anxiety; I25.10 Atherosclerotic heart disease of native coronary artery without angina pectoris; E78.00 Pure hypercholesterolemia, unspecified; I10 Essential (primary) hypertension; E11.9 Type 2 diabetes mellitus without complications; Z90.49 Acquired absence of other specified parts of digestive tract; Z90.710 Acquired absence of both cervix and uterus; Z79.899 Other long term (current) drug therapy; Z79.4 Long term (current) use of insulin
CPT/HCPCS: 36415; 70450; 71045; 80053; 81001; 84484; 85025; 87077; 87088; 87186; 93005; 99284

== ENCOUNTER 2019-12-15 07:50 | Emergency (ER) | payer MEDICARE ==
[~2019-12-15] VITALS: Ht 157.5 cm; Wt 50.0 kg
[~2019-12-15 07:50] MED LIST changes: +ONDA4TAB6 PO
[2019-12-15 09:18] LABS: BASOPHILS % (AUTO) 0.2 % (0-1); EOSINOPHILS # (AUTO) 0.1 X10'3 (0-0.9); EOSINOPHILS % (AUTO) 0.5 % (0-6); HEMATOCRIT 34.8 % (35.0-45.0); HEMOGLOBIN 11.7 g/dl (12.0-16.0); LYMPHOCYTES # (AUTO) 0.6 X10'3 (1.1-4.8); MEAN CORPUSCULAR HEMOGLOBIN 31.9 PG (27.0-31.0); MEAN CORPUSCULAR HGB CONC 33.6 g/dL (33.0-36.5); MEAN CORPUSCULAR VOLUME 94.9 FL (78-98); MEAN PLATELET VOLUME 8.8 FL (7.4-10.4); MONOCYTES # (AUTO) 0.3 X10'3 (0-0.9); MONOCYTES % (AUTO) 3.3 % (2-12); NEUTROPHILS # (AUTO) 9.5 X10'3 (1.8-7.7); PLATELET COUNT 229 X10'3 (140-440); RED BLOOD COUNT 3.67 X10'6 (4.20-5.60); RED CELL DISTRIBUTION WIDTH 13.3 % (11.5-14.5); WHITE BLOOD COUNT 10.5 X10'3 (4.5-11.0)
[2019-12-15 09:30] LABS: ALANINE AMINOTRANSFERASE 17 U/L (12-78); ALBUMIN 3.3 G/DL (3.4-5.0); ALBUMIN/GLOBULIN RATIO 0.9 (1.1-1.5); ALKALINE PHOSPHATASE 105 IU/L (46-116); ANION GAP 7 (8-16); ASPARTATE AMINO TRANSFERASE 17 U/L (10-37); BILIRUBIN,TOTAL 0.3 MG/DL (0.1-1.0); BLOOD UREA NITROGEN 28 MG/DL (7-18); BUN/CREATININE RATIO 25.9 (6.6-38.0); CALCIUM 9.1 MG/DL (8.5-10.1); CHLORIDE 105 MMOL/L (99-107); CREATININE 1.08 MG/DL (0.40-0.90); GLUCOSE 257 MG/DL (70-104); POTASSIUM 4.5 MMOL/L (3.5-5.1); SODIUM 138 MMOL/L (135-145); TOTAL CARBON DIOXIDE 25.7 MMOL/L (24-32); TOTAL PROTEIN 6.8 G/DL (6.4-8.2); eGFR 49 ML/MIN
[2019-12-15 09:37] LABS: PARTIAL THROMBOPLASTIN TIME 25 SECONDS (22-32); TROPONIN I < 0.04 NG/ML (0.0-0.05)
--- NOTE | 2019-12-15 11:24 | NUR ---
UP TO BSC WITH ASSISST
[2019-12-15] MEDS ORDERED: CefTRIAXone 2gm/D5W 50ml 50 ML IV ONE (13:30)
[2019-12-15] MEDS ORDERED: normal saline 1000ML IV soln IVB ONE (13:30)
[2019-12-15] MEDS ORDERED: CefTRIAXone inj 2,000 MG in normal saline 100ml IV soln 100 ML IV ONE (13:40)
[2019-12-15 15:09] VITALS: BP 112/65
== END 2019-12-15 15:11 | disposition home or self-care (01) ==
LOC: ER 07:51
DX: R55 Syncope and collapse (principal); R19.7 Diarrhea, unspecified; E86.0 Dehydration; Z20.828 Contact with and (suspected) exposure to other viral communicable diseases; I25.10 Atherosclerotic heart disease of native coronary artery without angina pectoris; E78.00 Pure hypercholesterolemia, unspecified; I10 Essential (primary) hypertension; E11.9 Type 2 diabetes mellitus without complications; Z85.9 Personal history of malignant neoplasm, unspecified; Z90.89 Acquired absence of other organs; Z90.710 Acquired absence of both cervix and uterus; Z60.2 Problems related to living alone; Z79.4 Long term (current) use of insulin; Z79.899 Other long term (current) drug therapy
CPT/HCPCS: 36415; 70450; 71045; 80053; 83605; 84484; 85025; 85610; 85730; 87040; 93005; 96365; 99285; J0696; J7030; U0003

== ENCOUNTER 2020-02-17 08:58 | Emergency (ER) | payer MEDICARE ==
[~2020-02-17] VITALS: Ht 160 cm; Wt 50.0 kg
[2020-02-17] MEDS ORDERED: normal saline 1000ML IV soln IV ONE (09:05)
[2020-02-17 09:55] LABS: BASOPHILS % (AUTO) 0.3 % (0-1); EOSINOPHILS % (AUTO) 0.2 % (0-6); HEMATOCRIT 28.9 % (35.0-45.0); HEMOGLOBIN 9.8 g/dl (12.0-16.0); LYMPHOCYTES # (AUTO) 0.3 X10'3 (1.1-4.8); MEAN CORPUSCULAR HEMOGLOBIN 31.4 PG (27.0-31.0); MEAN CORPUSCULAR HGB CONC 33.9 g/dL (33.0-36.5); MEAN CORPUSCULAR VOLUME 92.5 FL (78-98); MEAN PLATELET VOLUME 8.9 FL (7.4-10.4); MONOCYTES # (AUTO) 0.2 X10'3 (0-0.9); MONOCYTES % (AUTO) 4.2 % (2-12); NEUTROPHILS # (AUTO) 3.7 X10'3 (1.8-7.7); NEUTROPHILS % (AUTO) 87.3 % (42-75); PLATELET COUNT 163 X10'3 (140-440); RED BLOOD COUNT 3.13 X10'6 (4.20-5.60); RED CELL DISTRIBUTION WIDTH 13.3 % (11.5-14.5); WHITE BLOOD COUNT 4.3 X10'3 (4.5-11.0)
--- NOTE | 2020-02-17 09:55 | NUR ---
Spoke with pts daughter Joyce and updated family on pt status. Daughter left # [phone]
[2020-02-17 10:08] LABS: ALANINE AMINOTRANSFERASE 9 U/L (12-78); ALBUMIN 2.9 G/DL (3.4-5.0); ALKALINE PHOSPHATASE 57 IU/L (46-116); ANION GAP 8 (8-16); ASPARTATE AMINO TRANSFERASE 15 U/L (10-37); BILIRUBIN,TOTAL 0.4 MG/DL (0.1-1.0); BLOOD UREA NITROGEN 32 MG/DL (7-18); BUN/CREATININE RATIO 34.4 (6.6-38.0); CALCIUM 8.1 MG/DL (8.5-10.1); CHLORIDE 105 MMOL/L (99-107); CREATININE 0.93 MG/DL (0.40-0.90); GLUCOSE 247 MG/DL (70-104); POTASSIUM 4.1 MMOL/L (3.5-5.1); SODIUM 139 MMOL/L (135-145); TOTAL CARBON DIOXIDE 26.3 MMOL/L (24-32); TOTAL PROTEIN 5.7 G/DL (6.4-8.2); eGFR 58 ML/MIN
[2020-02-17 10:32] LABS: CLARITY,URINE CLOUDY (Clear); COLOR,URINE YELLOW (Yellow); GLUCOSE, URINE 500 mg/dl (Neg); KETONES,URINE TRACE mg/dl (Neg); LEUKOCYTE ESTERASE ,URINE MODERATE (Neg); NITRITES, URINE NEGATIVE (Neg); OCCULT BLOOD,URINE TRACE-INTACT (Neg); PH,URINE 6.5 (4.8-8.0); PROTEIN,URINE TRACE mg/dl (Neg); UA COLLECTION TYPE FOLEY CATH; UROBILINOGEN,URINE 0.2 E.U/dL (0.2-1.0)
[2020-02-17 10:39] LABS: BACTERIA,URINE 4+ /HPF (Neg); WBC,URINE TNTC /HPF (0-4)
[2020-02-17 10:40] LABS: WBC CLUMPS,URINE MANY /HPF (NEGATIVE)
[2020-02-17 10:42] LABS: SQUAMOUS EPITHELIAL CELL,UR FEW /LPF (FEW)
[2020-02-17] MEDS ORDERED: CEPH250T PO (10:52)
[2020-02-17] MEDS ORDERED: POLY17PO10 PO (10:52)
--- NOTE | 2020-02-17 11:16 | NUR ---
spoke with Pt's dtr Joyce. Joyce made aware Pt d/c ready. Joyce stated she would be here to olive picker Pt.
[2020-02-17 11:32] VITALS: BP 130/60
== END 2020-02-17 11:55 | disposition home or self-care (01) ==
LOC: ER 08:58
DX: N39.0 Urinary tract infection, site not specified (principal); K59.00 Constipation, unspecified; F03.90 Unspecified dementia, unspecified severity, without behavioral disturbance, psychotic disturbance, mood disturbance, and anxiety; G20 Parkinson's disease; I25.10 Atherosclerotic heart disease of native coronary artery without angina pectoris; E78.00 Pure hypercholesterolemia, unspecified; I10 Essential (primary) hypertension; E11.9 Type 2 diabetes mellitus without complications; Z90.49 Acquired absence of other specified parts of digestive tract; Z90.710 Acquired absence of both cervix and uterus; Z79.4 Long term (current) use of insulin; Z79.899 Other long term (current) drug therapy
CPT/HCPCS: 36415; 71045; 74176; 80053; 81001; 82948; 83605; 84145; 84484; 85025; 87040; 87088; 93005; 96360; 96361; 99285; J7030; 87077; 87186

== ENCOUNTER 2022-03-12 20:43 | Emergency (ER) | payer MEDICARE, MEDICAID ==
[~2022-03-12] VITALS: Ht 167.6 cm; Wt 72.7 kg
[~2022-03-12 20:43] MED LIST changes: +ALPR0.255 PO; -ALPR1TAB7 PO; -ATOR10TA87 PO; +CARB1TAB36 PO; +CLOP75TA34 PO; -CLOP75TA35 PO; +FERR324T4 PO; +LISI40TA13 PO; -LISI40TA4 PO; +METF-1203 PO; -METF-950 PO; +METH1TAB32 PO; -MULT-955 PO; +NITR100C PO; -ONDA4TAB6 PO; +QUET25TA PO; -QUET50TA22 PO; +QUET50TA24 PO; -SERT25TA5 PO
[2022-03-12] MEDS ORDERED: normal saline 1000ML IV soln IVB ONE (21:25)
[2022-03-12] MEDS ORDERED: insulin regular, human 10 units/0.1 ml syringe SQ ONE ×2 (21:25→23:25)
[2022-03-12 21:48] LABS: BASOPHILS % (AUTO) 0.4 % (0-1); EOSINOPHILS % (AUTO) 0.1 % (0-6); HEMATOCRIT 29.8 % (35.0-45.0); HEMOGLOBIN 9.4 g/dl (12.0-16.0); LYMPHOCYTES # (AUTO) 0.3 X10'3 (1.1-4.8); LYMPHOCYTES % (AUTO) 2.7 % (21-51); MEAN CORPUSCULAR HEMOGLOBIN 24.5 PG (27.0-31.0); MEAN CORPUSCULAR HGB CONC 31.5 g/dL (33.0-36.5); MEAN CORPUSCULAR VOLUME 77.8 FL (78-98); MEAN PLATELET VOLUME 8.9 FL (7.4-10.4); MONOCYTES # (AUTO) 0.5 X10'3 (0-0.9); MONOCYTES % (AUTO) 4.4 % (2-12); NEUTROPHILS # (AUTO) 10.1 X10'3 (1.8-7.7); NEUTROPHILS % (AUTO) 92.4 % (42-75); PLATELET COUNT 260 X10'3 (140-440); RED BLOOD COUNT 3.82 X10'6 (4.20-5.60); RED CELL DISTRIBUTION WIDTH 17.5 % (11.5-14.5); WHITE BLOOD COUNT 10.9 X10'3 (4.5-11.0)
[2022-03-12 22:02] LABS: ALANINE AMINOTRANSFERASE 9 U/L (12-78); ALBUMIN 2.9 G/DL (3.4-5.0); ALBUMIN/GLOBULIN RATIO 0.9 (1.1-1.5); ALKALINE PHOSPHATASE 78 IU/L (46-116); ANION GAP 14 (8-16); ASPARTATE AMINO TRANSFERASE 10 U/L (10-37); BILIRUBIN,TOTAL 0.2 MG/DL (0.1-1.0); BLOOD UREA NITROGEN 49 MG/DL (7-18); BUN/CREATININE RATIO 37.4 (6.6-38.0); CALCIUM 8.8 MG/DL (8.5-10.1); CHLORIDE 108 MMOL/L (99-107); CREATININE 1.31 MG/DL (0.40-0.90); GLUCOSE 395 MG/DL (70-104); LIPASE 120 U/L (73-393); POTASSIUM 4.8 MMOL/L (3.5-5.1); SODIUM 140 MMOL/L (135-145); TOTAL CARBON DIOXIDE 17.7 MMOL/L (24-32); TOTAL PROTEIN 6.3 G/DL (6.4-8.2); eGFR 39 ML/MIN
[2022-03-12 23:33] VITALS: BP 131/64
== END 2022-03-13 00:55 | disposition home or self-care (01) ==
LOC: ER 20:44
DX: E86.0 Dehydration (principal); E16.2 Hypoglycemia, unspecified; E78.00 Pure hypercholesterolemia, unspecified; E11.9 Type 2 diabetes mellitus without complications; I11.9 Hypertensive heart disease without heart failure; Z90.49 Acquired absence of other specified parts of digestive tract; Z79.899 Other long term (current) drug therapy; Z79.82 Long term (current) use of aspirin
CPT/HCPCS: 36415; 71045; 80053; 82948; 83690; 85025; 96360; 96361; 99284; J1815; J7030; 99283; 99285